=== PATIENT | male | born 1980 | race Caucasian/White ===

== ENCOUNTER 2017-07-22 14:01 | Emergency (ER) | payer MEDICAID ==
[~2017-07-22] VITALS: Ht 188 cm; Wt 81.7 kg
[2017-07-22] MEDS ORDERED: NORCO 5-325 TA1 EACH PO (14:23)
[2017-07-22] MEDS ORDERED: CYCLOBENZAPRINE5 MG PO (15:06)
[2017-07-22] MEDS ORDERED: IBUPROFEN600 MG PO (15:06)
[2017-09-07] MEDS ORDERED: CLEOCIN HCL300 MG PO (10:13)
== END 2017-07-22 15:25 | disposition home or self-care (01) ==
LOC: ED 14:01
DX: R25.2 Cramp and spasm (principal); F17.200 Nicotine dependence, unspecified, uncomplicated; Z88.1 Allergy status to other antibiotic agents; Z79.899 Other long term (current) drug therapy
CPT/HCPCS: 99283

== ENCOUNTER 2018-07-20 17:28 | Emergency (ER) | payer SELFPAY ==
[~2018-07-20] VITALS: Ht 188 cm; Wt 81.7 kg
[~2018-07-20 17:28] MED LIST: CLEOCIN HCL300 MG PO; CYCLOBENZAPRINE5 MG PO; IBUPROFEN600 MG PO; NORCO 5-325 TA1 EACH PO
[2018-07-20] MEDS ORDERED: KEFLEX500 MG PO (18:34)
== END 2018-07-20 18:49 | disposition home or self-care (01) ==
LOC: ED 17:28
PROC: 0R9L3ZZ Drainage of Right Elbow Joint, Percutaneous Approach (ICD-10-PCS; principal; 2018-07-20)
DX: M70.21 Olecranon bursitis, right elbow (principal); Z88.1 Allergy status to other antibiotic agents
CPT/HCPCS: 20605; 99282-25

== ENCOUNTER 2019-03-14 22:11 | Emergency (ER) | payer SELFPAY ==
[~2019-03-14] VITALS: Ht 188 cm; Wt 81.7 kg
[~2019-03-14 22:11] MED LIST changes: +KEFLEX500 MG PO
[2019-03-14] MEDS ORDERED: IBUPROFEN600 MG PO (23:04)
--- NOTE | 2019-03-15 16:14 | EKG ---
[facility] [address] [facility] [place] [address] Signed Normal sinus rhythm with sinus arrhythmia Normal ECG No previous ECGs available Confirmed by HAJA KWAN MD ([id number] on 03/15/2019 4:13:51 PM Electronically Signed By: HAJA KWAN MD 03/15/19 1614 PATIENT NAME: MAGDALENA SERRANO LITTLE Electrocardiogram DATE OF : 76 PHYSICIAN: HAJA KWAN MD REPORT #: [id number] REPORT IS CONFIDENTIAL AND NOT TO BE RELEASED WITHOUT AUTHORIZATION
== END 2019-03-14 23:18 | disposition home or self-care (01) ==
LOC: ED 22:11
DX: S20.212A Contusion of left front wall of thorax, initial encounter (principal); Y04.8XXA Assault by other bodily force, initial encounter; F17.200 Nicotine dependence, unspecified, uncomplicated; Z88.1 Allergy status to other antibiotic agents
CPT/HCPCS: 71046; 80053; 83735; 84484; 85025; 93005; 93010; 99285-25; A9270

== ENCOUNTER 2020-02-13 03:16 | Emergency (ER) | payer SELFPAY ==
[~2020-02-13] VITALS: Ht 190.5 cm; Wt 81.6 kg
== END 2020-02-13 03:54 | disposition home or self-care (01) ==
LOC: ED 03:16
DX: S61.216A Laceration without foreign body of right little finger without damage to nail, initial encounter (principal); F17.200 Nicotine dependence, unspecified, uncomplicated; Z88.1 Allergy status to other antibiotic agents; W26.0XXA Contact with knife, initial encounter
CPT/HCPCS: 12001; 99282-25

== ENCOUNTER 2021-03-08 18:20 | Emergency (ER) | payer SELFPAY ==
[~2021-03-08] VITALS: Ht 185.4 cm; Wt 87.5 kg
== END 2021-03-08 20:00 | disposition home or self-care (01) ==
LOC: ED 18:20
DX: S61.102A Unspecified open wound of left thumb with damage to nail, initial encounter (principal); W26.0XXA Contact with knife, initial encounter; Z23 Encounter for immunization; F17.200 Nicotine dependence, unspecified, uncomplicated; Z88.1 Allergy status to other antibiotic agents
CPT/HCPCS: 12001; 90471; 90715; 99282-25

== ENCOUNTER 2022-06-25 08:04 | Emergency (ER) | payer BC ==
[~2022-06-25] VITALS: Ht 188 cm; Wt 83.0 kg
[2022-06-25] MEDS ORDERED: HYDROCODON-ACE1 EA11 PO (09:58)
== END 2022-06-25 10:11 | disposition home or self-care (01) ==
LOC: ED 08:04
DX: N13.2 Hydronephrosis with renal and ureteral calculous obstruction (principal); F17.200 Nicotine dependence, unspecified, uncomplicated; Z88.1 Allergy status to other antibiotic agents
CPT/HCPCS: 36415; 74176; 80053; 81001; 83690; 85025; 96361; 96374; 96375; 99284-25; 99406; A9270; J1885; J2405; J7030